=== PATIENT | male | born 1985 | race Caucasian/White ===

== ENCOUNTER 2016-10-17 15:05 | Emergency (ER) | payer OTHER ==
[~2016-10-17] VITALS: Ht 170.2 cm; Wt 74.7 kg
[~2016-10-17 15:05] MED LIST: B-1100 MG PO; BACTRIM,SEPT1 TABLET PO; CONDYLOX TP; DESYREL100 MG PO; DIVALPROEX SOD500 M1 PO; FLOMAX0.4 MG PO; LIBRIUM25 MG PO; LIBRIUM5 MG PO; METHADONE H5 MG/5 ML PO; METHADONE10 MG PO; MOBIC7.5 MG PO; MOTRIN600 MG PO; PAROXETINE HCL20 MG PO; PERCOCET 5/31 TABLET PO; PODOFILOX3.5 ML TP; VICODIN 5-3001 EACH PO; ZOFRAN4 MG PO
[2016-10-17 15:51] LABS: CHLORIDE 100 mEq/L (99-109); POTASSIUM 3.2 mEq/L (3.7-5.4); SODIUM 136 mEq/L (136-147)
[2016-10-17 15:54] LABS: GLUCOSE 97 mg/dL (70-99)
[2016-10-17 15:55] LABS: ANION GAP 14 MEQ/L (2-14); TOTAL BILIRUBIN 4.1 mg/dL (0.0-1.0)
[2016-10-17 15:57] LABS: ALKALINE PHOSPHATASE 50 IU/L (3-129); SERUM ETHYL ALCOHOL 226 mg/dL
[2016-10-17 15:58] LABS: GFR ESTIMATE (CALCULATED) > 59 mL/min/
[2016-10-17 15:59] LABS: UREA NITROGEN (BUN) 9 mg/dL (9-23)
[2016-10-17 16:00] LABS: POINT-OF-CARE METER ID UU14100415
[2016-10-17 16:33] LABS: HEMATOCRIT 49.8 % (38.0-50.0); MCH 34.4 PG (29.0-34.0); MCHC 37.8 G/DL (30.0-36.0); MEAN PLAT.VOLUME 13.6 uM^3 (9.0-12.4); PLATELET COUNT 74 K/uL (156-360); RBC DIS.WIDTH-CV 14.4 % (11.8-14.6); RBC DIS.WIDTH-SD 47.7 % (39-53); RED BLOOD COUNT 5.47 M/uL (4.00-5.50); WHITE BLOOD COUNT 7.6 K/uL (4.1-10.2)
[2016-10-17 17:06] LABS: EOSINOPHIL (%) 0.7 % (0-5); EOSINOPHIL COUNT 0.1 K/uL (0-0.3); HEMATOLOGY COMMENT 1 SMEAR COMPATIBLE; IMMATURE GRANULOCYTE (%) 0.7 % (0.0-0.7); IMMATURE GRANULOCYTE COUNT 0.1 K/uL; LYMPHOCYTE COUNT 2.3 K/uL (1.0-2.8); MONOCYTE (%) 12.1 % (3-12); MONOCYTE COUNT 0.9 K/uL (0-0.8); NEUTROPHIL (%) 56.1 % (45-76); NEUTROPHIL COUNT 4.3 K/uL (1.8-6.4); PLAT.SUFFICIENCY DECREASED
[2016-10-17 17:23] LABS: AMPHETAMINE NEGATIVE (500 ng/mL); BARBITURATES NEGATIVE (200 ng/mL); BENZODIAZEPINES NEGATIVE (150 ng/mL); COCAINE NEGATIVE (150 ng/mL); INTERNAL CONTROLS VALID? YES; METHADONE NEGATIVE (200 ng/mL); METHAMPHETAMINE NEGATIVE (500 ng/mL); OPIATES (MORPHINE) NEGATIVE (100 ng/mL); OXYCODONE NEGATIVE (100 ng/mL); PHENCYCLIDINE NEGATIVE (25 ng/mL); PROPOXYPHENE NEGATIVE (300 ng/mL); THC CANNABINOIDS NEGATIVE (50 ng/mL); TRICYCLIC ANTIDEPRESSANTS NEGATIVE (300 ng/mL)
[2016-10-18 02:08] LABS: CREATINE KINASE 293 IU/L (1-294); TOTAL CK 293 IU/L (1-294)
[2016-10-18 02:39] LABS: CK-MB 2.9 ng/mL (0.0-4.9)
[2016-10-18 04:11] VITALS: BP 134/92
== END 2016-10-18 04:11 | disposition home or self-care (01) ==
LOC: EME 15:05
PROVIDERS: Emergency Medicine
DX: R41.82 Altered mental status, unspecified (principal); F10.229 Alcohol dependence with intoxication, unspecified; F31.11 Bipolar disorder, current episode manic without psychotic features, mild; F19.10 Other psychoactive substance abuse, uncomplicated; Y90.7 Blood alcohol level of 200-239 mg/100 ml
CPT/HCPCS: 70450; 80053; 82550; 82553; 82948; 85025; 90839; 99281; 99285; G0480; J1885; J2060; J2310; J7030

== ENCOUNTER 2016-10-18 20:16 | Emergency (ER) | payer OTHER ==
[2016-10-18 20:55] LABS: AMYLASE 76 IU/L (1-118); CHLORIDE 103 mEq/L (99-109); POTASSIUM 3.5 mEq/L (3.7-5.4); SODIUM 140 mEq/L (136-147)
[2016-10-18 20:59] LABS: ANION GAP 17 MEQ/L (2-14)
[2016-10-18 21:00] LABS: SERUM ETHYL ALCOHOL 216 mg/dL
[2016-10-18 21:01] LABS: GFR ESTIMATE (CALCULATED) > 59 mL/min/
[2016-10-18 21:02] LABS: UREA NITROGEN (BUN) 8 mg/dL (9-23)
[2016-10-18 21:04] LABS: LIPASE 45 U/L (1.0-51.0)
[2016-10-18 21:08] LABS: GLUCOSE 65 mg/dL (70-99)
[2016-10-18 21:22] LABS: ADD MIUA? NO; BILIRUBIN NEGATIVE; BLOOD NEGATIVE; COLOR YELLOW ((YELLOW)); GLUCOSE (STRIP) NEGATIVE; KETONES NEGATIVE; LEUKOCYTES NEGATIVE; NITRITE NEGATIVE; PROTEIN (STRIP) NEGATIVE; SPECIFIC GRAVITY 1.024 (1.000-1.030); UCUL ADDED? NO
[2016-10-18 21:23] LABS: EOSINOPHIL (%) 1.7 % (0-5); EOSINOPHIL COUNT 0.1 K/uL (0-0.3); HEMATOCRIT 49.1 % (38.0-50.0); IMMATURE GRANULOCYTE (%) 0.3 % (0.0-0.7); LYMPHOCYTE COUNT 2.6 K/uL (1.0-2.8); MCH 34.4 PG (29.0-34.0); MCHC 37.9 G/DL (30.0-36.0); MCV 90.9 FL (86-99); MEAN PLAT.VOLUME 12.6 uM^3 (9.0-12.4); MONOCYTE (%) 11.6 % (3-12); MONOCYTE COUNT 0.8 K/uL (0-0.8); NEUTROPHIL (%) 49.9 % (45-76); NEUTROPHIL COUNT 3.5 K/uL (1.8-6.4); PLATELET COUNT 140 K/uL (156-360); RBC DIS.WIDTH-CV 14.5 % (11.8-14.6); RBC DIS.WIDTH-SD 47.6 % (39-53); WHITE BLOOD COUNT 7.1 K/uL (4.1-10.2)
[2016-10-18 21:31] LABS: AMPHETAMINE NEGATIVE (500 ng/mL); BARBITURATES NEGATIVE (200 ng/mL); BENZODIAZEPINES PRESUMPTIVE POSITIVE (150 ng/mL); COCAINE NEGATIVE (150 ng/mL); INTERNAL CONTROLS VALID? YES; METHADONE NEGATIVE (200 ng/mL); METHAMPHETAMINE NEGATIVE (500 ng/mL); OPIATES (MORPHINE) NEGATIVE (100 ng/mL); OXYCODONE NEGATIVE (100 ng/mL); PHENCYCLIDINE NEGATIVE (25 ng/mL); PROPOXYPHENE NEGATIVE (300 ng/mL); THC CANNABINOIDS PRESUMPTIVE POSITIVE (50 ng/mL); TRICYCLIC ANTIDEPRESSANTS NEGATIVE (300 ng/mL)
[2016-10-18 21:32] LABS: ADD MEDTOX COMMENT Y
[2016-10-18 22:03] LABS: BENZODIAZEPINES QUANT VALUE 0 NG/ML; BENZODIAZEPINES, URINE SCREEN Negative (200 ng/mL); MARIJUANA QUANT VALUE 0 NG/ML
[2016-10-19 00:52] VITALS: BP 120/83
== END 2016-10-19 04:18 | disposition home or self-care (01) ==
LOC: TRA 20:16
PROVIDERS: Emergency Medicine
DX: S90.31XA Contusion of right foot, initial encounter (principal); F10.129 Alcohol abuse with intoxication, unspecified; T14.8 Other injury of unspecified body region; S80.811A Abrasion, right lower leg, initial encounter; V03.10XA Pedestrian on foot injured in collision with car, pick-up truck or van in traffic accident, initial encounter; Y92.488 Other paved roadways as the place of occurrence of the external cause; F17.200 Nicotine dependence, unspecified, uncomplicated
CPT/HCPCS: 70450; 71260; 72125; 72129; 72132; 73590; 73630; 74177; 80048; 81003; 82150; 83690; 84999; 85025; 86850; 86900; 86901; 90839; 99281; 99284; G0480; J2270; J3010

== ENCOUNTER 2016-11-18 11:42 | Inpatient (IN) | payer OTHER ==
[~2016-11-18] VITALS: Ht 170.2 cm; Wt 74.0 kg
[2016-11-18 12:50] LABS: AMPHETAMINE NEGATIVE (500 ng/mL); BARBITURATES NEGATIVE (200 ng/mL); BENZODIAZEPINES NEGATIVE (150 ng/mL); COCAINE NEGATIVE (150 ng/mL); INTERNAL CONTROLS VALID? YES; METHADONE NEGATIVE (200 ng/mL); METHAMPHETAMINE NEGATIVE (500 ng/mL); OPIATES (MORPHINE) NEGATIVE (100 ng/mL); OXYCODONE NEGATIVE (100 ng/mL); PHENCYCLIDINE NEGATIVE (25 ng/mL); PROPOXYPHENE NEGATIVE (300 ng/mL); THC CANNABINOIDS NEGATIVE (50 ng/mL); TRICYCLIC ANTIDEPRESSANTS NEGATIVE (300 ng/mL)
[2016-11-18 13:14] LABS: CHLORIDE 110 mEq/L (99-109); POTASSIUM 3.5 mEq/L (3.7-5.4); SODIUM 144 mEq/L (136-147)
[2016-11-18 13:17] LABS: GLUCOSE 108 mg/dL (70-99)
[2016-11-18 13:18] LABS: ANION GAP 15 MEQ/L (2-14)
[2016-11-18 13:19] LABS: TOTAL BILIRUBIN 2.4 mg/dL (0.0-1.0)
[2016-11-18 13:20] LABS: SERUM ETHYL ALCOHOL 300 mg/dL
[2016-11-18 13:21] LABS: ALKALINE PHOSPHATASE 60 IU/L (3-129); GFR ESTIMATE (CALCULATED) > 59 mL/min/
[2016-11-18 13:22] LABS: UREA NITROGEN (BUN) 9 mg/dL (9-23)
[2016-11-18 13:24] LABS: CREATINE KINASE 260 IU/L (1-294)
[2016-11-18 13:30] LABS: TROP-I INTERPRETATION NEGATIVE; TROPONIN-I < 0.01 ng/mL (0.0-0.30)
[2016-11-18 13:37] LABS: EOSINOPHIL (%) 0.9 % (0-5); EOSINOPHIL COUNT 0.1 K/uL (0-0.3); HEMATOCRIT 52.3 % (38.0-50.0); IMMATURE GRANULOCYTE (%) 0.6 % (0.0-0.7); IMMATURE GRANULOCYTE COUNT 0.1 K/uL; LYMPHOCYTE COUNT 2.1 K/uL (1.0-2.8); MCH 34.1 PG (29.0-34.0); MCHC 36.5 G/DL (30.0-36.0); MONOCYTE (%) 6.8 % (3-12); MONOCYTE COUNT 0.6 K/uL (0-0.8); NEUTROPHIL (%) 65.2 % (45-76); NEUTROPHIL COUNT 5.3 K/uL (1.8-6.4); RBC DIS.WIDTH-CV 14.8 % (11.8-14.6); RBC DIS.WIDTH-SD 50.6 % (39-53)
[2016-11-18 13:50] LABS: MCV 93.4 FL (86-99); WHITE BLOOD COUNT 8.1 K/uL (4.1-10.2)
[2016-11-18 15:18] LABS: HEMATOLOGY COMMENT 1 SS; MEAN PLAT.VOLUME 13.4 uM^3 (9.0-12.4); PLAT.SUFFICIENCY ADEQUATE; PLATELET COUNT 182 K/uL (156-360)
[2016-11-18 15:24] LABS: BASE EXCESS -1.6 mEq/L (-3 to +3); CARBOXY HGB 2.3 % (0-5); COMMENTS - BLOOD GASES A+C+; METHEMOGLOBIN 1.2 % (0-1.5); PCO2 38 mm Hg (35-45); PO2 380 mm Hg (80-100); SITE LB; pH 7.39 (7.35-7.45)
[2016-11-18 15:25] LABS: DEVICE 840 PB; FI02 80 %; MECHANICAL RATE 16 resp/min; MODE AC; PEEP 5 CM/H20; TIDAL VOLUME 550 ML; TOTAL RESP RATE 16 resp/min
[2016-11-18 20:25] VITALS: BP 117/81
[2016-11-18 20:27] VITALS: BP 114/74
[2016-11-18 20:30] VITALS: BP 114/74
[2016-11-18 21:57] LABS: METH RESISTANT S AUREUS PCR POSITIVE (NEGATIVE)
[2016-11-18 22:00] VITALS: BP 102/57
[2016-11-18 22:07] LABS: PROBE CHECK PASS
[2016-11-18 23:00] VITALS: BP 117/80
[2016-11-19] VITALS (21 sets, daily range): BP systolic 0–153; BP diastolic 0–98
[2016-11-19 03:57] LABS: POINT-OF-CARE METER ID UU14162636
[2016-11-19 07:07] LABS: ANION GAP 8 MEQ/L (2-14); CHLORIDE 108 MEQ/L (99-109); GFR ESTIMATE (CALCULATED) > 59 mL/min/; POTASSIUM 3.9 MEQ/L (3.7-5.4); SAMPLE HEMOLYSIS CHECK 0; SAMPLE ICTERIC CHECK 0; SAMPLE LIPEMIA CHECK 0; SODIUM 142 MEQ/L (136-147); UREA NITROGEN (BUN) 9 mg/dL (9-23)
[2016-11-19 07:09] LABS: GLUCOSE 76 mg/dL (70-99)
[2016-11-19 11:57] LABS: EOSINOPHIL (%) 1.5 % (0-5); EOSINOPHIL COUNT 0.1 K/uL (0-0.3); HEMATOCRIT 47.8 % (38.0-50.0); IMMATURE GRANULOCYTE (%) 0.1 % (0.0-0.7); LYMPHOCYTE COUNT 1.7 K/uL (1.0-2.8); MCH 33.5 PG (29.0-34.0); MCHC 35.1 G/DL (30.0-36.0); MCV 95.2 FL (86-99); MONOCYTE (%) 10.9 % (3-12); MONOCYTE COUNT 0.8 K/uL (0-0.8); NEUTROPHIL COUNT 4.6 K/uL (1.8-6.4); RBC DIS.WIDTH-CV 15.2 % (11.8-14.6); RBC DIS.WIDTH-SD 52.9 % (39-53); RED BLOOD COUNT 5.02 M/uL (4.00-5.50); WHITE BLOOD COUNT 7.3 K/uL (4.1-10.2)
[2016-11-19 12:30] LABS: MAGNESIUM 1.7 mg/dl (1.3-2.7)
[2016-11-19 14:18] LABS: MEAN PLAT.VOLUME 12.4 uM^3 (9.0-12.4); PLAT.SUFFICIENCY DECREASED; USER ID TLW
[2016-11-19 14:20] LABS: PLATELET COUNT 105 K/uL (156-360)
[2016-11-20 03:54] VITALS: BP 120/62
[2016-11-20 05:38] LABS: EOSINOPHIL (%) 2.3 % (0-5); EOSINOPHIL COUNT 0.1 K/uL (0-0.3); HEMATOCRIT 44.1 % (38.0-50.0); IMMATURE GRANULOCYTE (%) 0.2 % (0.0-0.7); LYMPHOCYTE COUNT 1.4 K/uL (1.0-2.8); MCH 35.1 PG (29.0-34.0); MCHC 37.2 G/DL (30.0-36.0); MCV 94.4 FL (86-99); MEAN PLAT.VOLUME 12.7 uM^3 (9.0-12.4); MONOCYTE (%) 9.7 % (3-12); MONOCYTE COUNT 0.5 K/uL (0-0.8); NEUTROPHIL (%) 61.9 % (45-76); NEUTROPHIL COUNT 3.5 K/uL (1.8-6.4); PLATELET COUNT 106 K/uL (156-360); RBC DIS.WIDTH-CV 14.4 % (11.8-14.6); RBC DIS.WIDTH-SD 49.1 % (39-53); RED BLOOD COUNT 4.67 M/uL (4.00-5.50); WHITE BLOOD COUNT 5.6 K/uL (4.1-10.2)
[2016-11-20 05:59] LABS: ANION GAP 9 MEQ/L (2-14); CHLORIDE 106 MEQ/L (99-109); GFR ESTIMATE (CALCULATED) > 59 mL/min/; MAGNESIUM 1.8 mg/dl (1.3-2.7); SAMPLE HEMOLYSIS CHECK 0; SAMPLE ICTERIC CHECK 2; SAMPLE LIPEMIA CHECK 0; SODIUM 140 MEQ/L (136-147); UREA NITROGEN (BUN) 6 mg/dL (9-23)
[2016-11-20 06:02] LABS: GLUCOSE 109 mg/dL (70-99)
[2016-11-20 08:24] VITALS: BP 127/89
[2016-11-20] MEDS ORDERED: CELEXA20 MG PO (11:05)
[2016-11-20] MEDS ORDERED: DEPAKOTE ER250 MG PO (11:07)
[2016-11-20] MEDS ORDERED: VYVANSE40 MG PO (11:07)
[2016-11-20 12:25] VITALS: BP 133/86
== END 2016-11-20 14:07 | DRG 918 ==
LOC: EME 11:42 → 3EAST 16:15 → 4WEST 16:15 → EDOF 16:15 → 4WEST 20:10 → 3EAST 11-19 18:26
PROVIDERS: Emergency Medicine; Internal Medicine Nephrology; Surgery
DX: T51.0X2A Toxic effect of ethanol, intentional self-harm, initial encounter (principal); F10.151 Alcohol abuse with alcohol-induced psychotic disorder with hallucinations; F10.129 Alcohol abuse with intoxication, unspecified; Y90.8 Blood alcohol level of 240 mg/100 ml or more; R45.6 Violent behavior; F17.210 Nicotine dependence, cigarettes, uncomplicated; F12.90 Cannabis use, unspecified, uncomplicated; F31.9 Bipolar disorder, unspecified
CPT/HCPCS: 36600; 71010; 80048; 80053; 82550; 82803; 82948; 83605; 83735; 84100; 84484; 85025; 87070; 87205; 87641; 93005; 94002; 94003; 99281; 99285; G0480; J1200; J1630; J1644; J2060; J2250; J2405; J2704; J3411; J7030; J7050; S0028

== ENCOUNTER 2017-03-13 02:24 | Emergency (ER) | payer OTHER ==
[~2017-03-13] VITALS: Ht 170.2 cm; Wt 80.2 kg
[~2017-03-13 02:24] MED LIST changes: +CELEXA20 MG PO; +DEPAKOTE ER250 MG PO; +VYVANSE40 MG PO
[2017-03-13 04:12] LABS: EOSINOPHIL COUNT 0.1 K/uL (0-0.3); HEMATOCRIT 43.6 % (38.0-50.0); IMMATURE GRANULOCYTE (%) 0.6 % (0.0-0.7); IMMATURE GRANULOCYTE COUNT 0.1 K/uL; INSTRUMENT ABS NEUTROPHIL CT 6.3 K/uL; LYMPHOCYTE COUNT 1.1 K/uL (1.0-2.8); MCH 33.5 PG (29.0-34.0); MCHC 35.8 G/DL (30.0-36.0); MCV 93.8 FL (86-99); MONOCYTE (%) 7.3 % (3-12); MONOCYTE COUNT 0.6 K/uL (0-0.8); NEUTROPHIL (%) 77.8 % (45-76); NEUTROPHIL COUNT 6.3 K/uL (1.8-6.4); PLATELET COUNT 129 K/uL (156-360); RBC DIS.WIDTH-CV 14.2 % (11.8-14.6); RBC DIS.WIDTH-SD 47.7 % (39-53); RED BLOOD COUNT 4.65 M/uL (4.00-5.50); WHITE BLOOD COUNT 8.1 K/uL (4.1-10.2)
[2017-03-13 04:25] LABS: AMYLASE 68 IU/L (1-118); CHLORIDE 112 mEq/L (99-109); POTASSIUM 3.7 mEq/L (3.7-5.4); SODIUM 143 mEq/L (136-147)
[2017-03-13 04:26] LABS: GLUCOSE 153 mg/dL (70-99)
[2017-03-13 04:28] LABS: ANION GAP 9 MEQ/L (2-14)
[2017-03-13 04:29] LABS: SERUM ETHYL ALCOHOL 136 mg/dL
[2017-03-13 04:30] LABS: GFR ESTIMATE (CALCULATED) > 59 mL/min/
[2017-03-13 04:31] LABS: UREA NITROGEN (BUN) 13 mg/dL (9-23)
[2017-03-13 04:33] LABS: LIPASE 20 U/L (1.0-51.0)
[2017-03-13 07:28] VITALS: BP 124/77
== END 2017-03-13 07:30 | disposition short-term general hospital (02) ==
LOC: EME → TRA 02:24 → EME 02:24 → EDBD 02:24 → TRA 07:30
PROVIDERS: Emergency Medicine
PROC: 3E0234Z Introduction of Serum, Toxoid and Vaccine into Muscle, Percutaneous Approach (ICD-10-PCS; principal; 2017-03-13)
DX: S02.601B Fracture of unspecified part of body of right mandible, initial encounter for open fracture (principal); S02.642A Fracture of ramus of left mandible, initial encounter for closed fracture; Y04.2XXA Assault by strike against or bumped into by another person, initial encounter; R40.2412 Glasgow coma scale score 13-15, at arrival to emergency department; F10.129 Alcohol abuse with intoxication, unspecified; K21.9 Gastro-esophageal reflux disease without esophagitis; F32.9 Major depressive disorder, single episode, unspecified; F17.200 Nicotine dependence, unspecified, uncomplicated
CPT/HCPCS: 70450; 70486; 71010; 72125; 80048; 81003; 82150; 83690; 85025; 86900; 86901; 99281; 99285; G0480; J0690; J2405; J3010; J7030; J7050

== ENCOUNTER 2017-11-16 16:38 | Emergency (ER) | payer OTHER ==
[~2017-11-16] VITALS: Ht 170.2 cm; Wt 94.0 kg
[~2017-11-16 16:38] MED LIST changes: +ADDERALL XR 3030 MG PO; +ALPRAZOLAM1 MG PO; +AMOX TR-K CLV1 EAC4 PO; +CHLORHEXIDINE473 ML MM; +DEPAKOTE ER500 MG PO; +OXYCODONE HCL5 MG PO; +QUETIAPINE FUM100 MG PO; +QUETIAPINE FUMA50 MG PO
[2017-11-16 17:55] LABS: INTER. NORMALIZED RATIO 1.7
[2017-11-16 17:57] LABS: ALBUMIN 3.1 g/dL (3.2-4.8); CHLORIDE 88 mEq/L (99-109); SODIUM 127 mEq/L (136-147)
[2017-11-16 17:58] LABS: MAGNESIUM 1.2 mg/dL (1.3-2.7)
[2017-11-16 18:00] LABS: GLUCOSE 133 mg/dL (70-99); TOTAL PROTEIN 7.2 g/dL (6.4-8.3)
[2017-11-16 18:01] LABS: TOTAL BILIRUBIN > 23.5 mg/dL (0.0-1.0)
[2017-11-16 18:03] LABS: ALKALINE PHOSPHATASE 122 IU/L (3-129); SERUM ETHYL ALCOHOL 336 mg/dL
[2017-11-16 18:04] LABS: GFR ESTIMATE (CALCULATED) > 59 mL/min/ (58.99-99999)
[2017-11-16 18:05] LABS: AST (GOT) 328 IU/L (2-34); UREA NITROGEN (BUN) 17 mg/dL (9-23)
[2017-11-16 18:06] LABS: ALT (GPT) 69 IU/L (3-49)
[2017-11-16 18:07] LABS: ACETAMINOPHEN (TYLENOL) < 10 mcg/mL (10-30); LIPASE 41 U/L (1.0-51.0)
[2017-11-16 18:07] LABS: PTT 41.9 SEC (25-37)
[2017-11-16 18:57] LABS: BASOPHIL (%) 0.4 % (0-1); EOSINOPHIL (%) 0.1 % (0-5); HEMATOLOGY COMMENT 1 INDICES RECAL; HEMOGLOBIN 15.6 G/DL (12.5-16.6); IMMATURE GRANULOCYTE (%) 1.5 % (0.0-0.7); LYMPHOCYTE (%) 5.4 % (15-42); LYMPHOCYTE COUNT 0.5 K/uL (1.0-2.8); MCH 35.8 PG (29.0-34.0); MCHC 33.2 G/DL (30.0-36.0); MCV 107.7 FL (86-99); MONOCYTE COUNT 0.8 K/uL (0-0.8); NEUTROPHIL (%) 84.6 % (45-76); NEUTROPHIL COUNT 8.5 K/uL (1.8-6.4); PLATELET COUNT 53 K/uL (156-360); RBC DIS.WIDTH-CV 15.1 % (11.8-14.6); RBC DIS.WIDTH-SD 53.6 % (39-53); RED BLOOD COUNT 4.36 M/uL (4.00-5.50)
[2017-11-16 19:26] LABS: DIRECT BILIRUBIN 19.4 mg/dL (0.0-0.3)
[2017-11-16 23:01] VITALS: BP 143/114
== END 2017-11-16 23:17 | disposition short-term general hospital (02) ==
LOC: EME 16:38
PROVIDERS: Emergency Medicine
DX: K72.00 Acute and subacute hepatic failure without coma (principal); K21.9 Gastro-esophageal reflux disease without esophagitis; K74.60 Unspecified cirrhosis of liver; F32.9 Major depressive disorder, single episode, unspecified; F17.200 Nicotine dependence, unspecified, uncomplicated; Z79.891 Long term (current) use of opiate analgesic; Z87.442 Personal history of urinary calculi; Z88.0 Allergy status to penicillin
CPT/HCPCS: 80053; 81003; 82140; 82248; 83690; 83735; 85025; 85610; 85730; 99281; 99285; G0480; J2060; J2405; J7030

== ENCOUNTER 2017-12-01 03:07 | Emergency (ER) | payer OTHER ==
[~2017-12-01] VITALS: Ht 177.8 cm; Wt 94.9 kg
[2017-12-01 03:45] LABS: CARBOXY HGB 3.8 % (0-5); COMMENTS - BLOOD GASES C+; DEVICE 980 VENT; FI02 100 %; MECHANICAL RATE 16 resp/min; METHEMOGLOBIN 0.9 % (0-1.5); MODE AC; PCO2 51 mm Hg (35-45); PEEP 5 CM/H20; PO2 47 mm Hg (80-100); SITE LR; TOTAL RESP RATE 16 resp/min; pH < 6.92 (7.35-7.45)
[2017-12-01 04:19] LABS: HEMATOCRIT 27.9 % (38.0-50.0); MCH 36.7 PG (29.0-34.0); MCHC 34.8 G/DL (30.0-36.0); MCV 105.7 FL (86-99); NRBC (%) 0.2 /100 WBC (0-0); RBC DIS.WIDTH-CV 17.7 % (11.8-14.6); RBC DIS.WIDTH-SD 68.1 % (39-53)
[2017-12-01 04:21] LABS: HEMOGLOBIN 9.7 G/DL (12.5-16.6); PLATELET COUNT 75 K/uL (156-360); RED BLOOD COUNT 2.64 M/uL (4.00-5.50); WHITE BLOOD COUNT 51.8 K/uL (4.1-10.2)
[2017-12-01 04:31] LABS: AMYLASE 332 IU/L (1-118); CHLORIDE 88 mEq/L (99-109); POTASSIUM 5.1 mEq/L (3.7-5.4); TROP-I INTERPRETATION NEGATIVE; TROPONIN-I 0.12 ng/mL (0.0-0.30)
[2017-12-01 04:32] LABS: SODIUM 124 mEq/L (136-147)
[2017-12-01 04:33] LABS: GLUCOSE 184 mg/dL (70-99)
[2017-12-01 04:36] LABS: SERUM ETHYL ALCOHOL < 10 mg/dL
[2017-12-01 04:37] LABS: GFR ESTIMATE (CALCULATED) 6 mL/min/ (58.99-99999)
[2017-12-01 04:40] LABS: INTER. NORMALIZED RATIO 4.1; LIPASE 834 U/L (1.0-51.0); PTT 80.6 SEC (25-37)
[2017-12-01 04:52] LABS: UREA NITROGEN (BUN) 115 mg/dL (9-23)
[2017-12-01 04:59] LABS: TIDAL VOLUME 500 ML
[2017-12-01 05:33] LABS: ALBUMIN 1.6 g/dL (3.2-4.8)
[2017-12-01 05:36] LABS: TOTAL PROTEIN 3.6 g/dL (6.4-8.3)
[2017-12-01 05:37] LABS: ABS NEUTROPHIL COUNT 44.2; ANISOCYTOSIS 2+; BAND NEUTROPHILS 8.2 % (0-8.0); BURR CELLS 2+; EOSINOPHIL ABS CT 0; HYPOCHROMASIA 2+; LYMPHOCYTES 6.4 % (15.0-45.0); MACROCYTES 2+; METAMYELOCYTES 4.6 %; MICROCYTOSIS 1+; MONOCYTES 0.9 % (0-9.0); MYELOCYTES 1.4 %; NUCLEATED RBC'S 0.5; PLAT.SUFFICIENCY DECREASED; POIKILOCYTOSIS 2+; POLYCHROMASIA 1+; SEG.NEUTROPHILS 77.1 % (46.0-76.0); SPHEROCYTES 1+; TARGET CELLS 1+; TEAR DROP CELLS 1+
[2017-12-01 05:38] LABS: TOTAL BILIRUBIN > 23.5 mg/dL (0.0-1.0)
[2017-12-01 05:39] LABS: ALKALINE PHOSPHATASE 221 IU/L (3-129)
[2017-12-01 05:41] LABS: AST (GOT) 311 IU/L (2-34)
[2017-12-01 05:42] LABS: ALT (GPT) 111 IU/L (3-49)
[2017-12-01 05:46] LABS: CARBOXY HGB 0.8 % (0-5)
[2017-12-01 05:47] LABS: COMMENTS - BLOOD GASES C+; DEVICE 980 VENT; FI02 100 %; MECHANICAL RATE 20 resp/min; MODE AC; PCO2 32 mm Hg (35-45); PEEP 5 CM/H20; PO2 211 mm Hg (80-100); SITE ALINE; TIDAL VOLUME 500 ML; TOTAL RESP RATE 20 resp/min; pH < 6.92 (7.35-7.45)
[2017-12-01 06:02] LABS: DIRECT BILIRUBIN 22.4 mg/dL (0.0-0.3)
[2017-12-01 09:45] VITALS: BP 00/00
== END 2017-12-01 07:48 ==
LOC: EME → EDBD 03:07 → EME 07:48
PROVIDERS: Emergency Medicine
DX: I46.9 Cardiac arrest, cause unspecified (principal); D65 Disseminated intravascular coagulation [defibrination syndrome]; K76.7 Hepatorenal syndrome; E72.20 Disorder of urea cycle metabolism, unspecified; E87.2 Acidosis; A41.9 Sepsis, unspecified organism; K72.01 Acute and subacute hepatic failure with coma; N17.9 Acute kidney failure, unspecified; J96.00 Acute respiratory failure, unspecified whether with hypoxia or hypercapnia; R65.20 Severe sepsis without septic shock; C22.8 Malignant neoplasm of liver, primary, unspecified as to type; D64.9 Anemia, unspecified; R18.8 Other ascites; Z87.442 Personal history of urinary calculi; Z88.0 Allergy status to penicillin; F17.200 Nicotine dependence, unspecified, uncomplicated
CPT/HCPCS: 36600; 71045; 80047; 80048; 80076; 81003; 82140; 82150; 82803; 83605; 83690; 84484; 85025; 85610; 85730; 86850; 86900; 86901; 87040; 87070; 87077; 87106; 87147; 87186; 87205; 87801; 93005; 94002; 99281; 99285; C1751; G0480; J0171; J1265; J2310; J3370; J3430; J7050; S0030